=== PATIENT | male | born 1990 | race Caucasian/White ===

== ENCOUNTER 2018-06-30 07:36 | Emergency (ER) | payer BC, OTHER ==
[~2018-06-30] VITALS: Ht 188 cm; Wt 86.2 kg
[2018-06-30] MEDS ORDERED: RT-ALBUINH IH (09:01)
--- NOTE | 2018-06-30 09:13 | Diagnostic Imaging Report ---
PATIENT HISTORY: Right lower rib pain. TECHNIQUE: 2 views of the chest COMPARISON: None FINDINGS: Lung volumes are borderline low. There are minimal airspace opacities in the lung bases bilaterally. No pleural effusion or pneumothorax is seen. The cardiomediastinal silhouette is normal in size and contour. No acute displaced rib fractures are seen. IMPRESSION: Minimal opacities in the lung bases bilaterally, likely atelectasis, and less likely developing infiltrate. No pneumothorax or displaced rib fractures are seen. Dictated by: Dictated on workstation # [id number]
[2018-06-30] MEDS ORDERED: KETOROLAC 60 MG/2 ML VIAL ONE (10:13)
[2018-06-30] MEDS ORDERED: KETOROLAC 60 MG/2 ML VIAL IM ONE (10:15)
[2018-06-30] MEDS ORDERED: AZIT250T12 PO (10:21)
--- NOTE | 2018-06-30 10:21 | ED General ---
General Chief Complaint: Chest Wall/Rib Pain Stated Complaint: RIB PAIN Nursing Triage Note: Pt c/o R lower rib pain since waking from sleep. Pt reports pain is much worse when taking a deep breath. Nursing Sepsis Screen: No Definite Risk Source of Information: Patient Exam Limitations: No Limitations History of Present Illness Date Seen by Provider: Jun 30, 2018 Time Seen by Provider: 08:30 Initial Comments This 28-year-old man presents to the emergency room with complaints of pain around the costal margin on the right. Hurts to take a deep breath and cough. He has had cough in recent days. Symptoms have been intensifying. He is afebrile. He has been taking ibuprofen alone for the pain. Allergies and Home Medications Allergies Coded Allergies: No Known Drug Allergies (Unverified , 06/30/18) Home Medications Albuterol Sulfate 1 Puff Puff, 2 PUFF IH Q4H, (Reported) 1 PUFF = 90 MCG Azithromycin 250 Mg Tablet, 250 MG PO UD TAKE 2 TABLETS ON DAY ONE THEN TAKE 1 TABLET DAILY FOR FOUR MORE DAYS Prescribed by: DEREJE GARCIA on 06/30/18 1021 Patient Home Medication List Home Medication List Reviewed: Yes Review of Systems Review of Systems Constitutional: no symptoms reported EENTM: no symptoms reported Respiratory: see HPI Cardiovascular: no symptoms reported Gastrointestinal: no symptoms reported Genitourinary: no symptoms reported Musculoskeletal: see HPI Skin: no symptoms reported Psychiatric/Neurological: No Symptoms Reported Hematologic/Lymphatic: No Symptoms Reported Immunological/Allergic: no symptoms reported Past Havjpks-Tsgxnr-Vudkwl Hx Patient Social History Alcohol Use: Denies Use Recreational Drug Use: No Smoking Status: Never a Smoker Recent Foreign Travel: No Contact w/Someone Who Travel: No Recent Infectious Disease Expo: No Recent Hopitalizations: No Past Medical History Surgeries: No Respiratory: Yes Asthma Cardiac: No Neurological: No Genitourinary: No Gastrointestinal: No Musculoskeletal: No Endocrine: No HEENT: No Cancer: No Psychosocial: No Integumentary: No Physical Exam Vital Signs Vital Signs - First Documented 06/30/18 08:10 Temp 98.8 Pulse 94 Resp 18 B/P (MAP) 162/77 (105) Pulse Ox 95 O2 Delivery Room Air Capillary Refill : Less Than 3 Seconds Height, Weight, BMI Height: 6'2.00" Weight: 190lbs. oz. 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 Decision time for Depature: 10:17 Referrals: NO,LOCAL PHYSICIAN (PCP) Primary Care Physician Patient Instructions: Chest Pain That Is Not Caused by the Heart (DC), Community-Acquired Pneumonia in Adults Add. Discharge Instructions: Take Ibuprofen up to 600 mg every 6 hours as needed for pain. Add Tylenol ( acetaminophen) up to 1000 mg every 6 hours as needed for additional pain relief. Complete your antibiotic as prescribed. Return to care if you have worsening symptoms. All discharge instructions reviewed with patient and/or family. Voiced understanding. Scripts Azithromycin (Azithromycin) 250 Mg Tablet 250 MG PO UD, #6 TAB TAKE 2 TABLETS ON DAY ONE THEN TAKE 1 TABLET DAILY FOR FOUR MORE DAYS Prov: DEREJE WILKES MD 06/30/18 DEREJE WILKES MD Jun 30, 2018 10:21
[2018-06-30 10:26] VITALS: BP 130/78
== END 2018-06-30 10:25 | disposition home or self-care (01) ==
LOC: ER 07:38
DX: R07.89 Other chest pain (principal); J45.909 Unspecified asthma, uncomplicated; R91.8 Other nonspecific abnormal finding of lung field; R05 Cough
CPT/HCPCS: 71046